=== PATIENT | male | born 1995 | race Caucasian/White ===

== ENCOUNTER 2019-02-22 00:49 | Emergency (ER) | payer OTHER ==
[~2019-02-22] VITALS: Ht 188 cm; Wt 83.9 kg
[~2019-02-22 00:49] MED LIST: BUSPIRONE HCL15 MG PO; REMERON30 MG PO
[2019-02-22] MEDS ORDERED: SERTRALINE HCL50 MG PO (01:11)
[2019-02-22] MEDS ORDERED: TRAZODONE HCL100 MG PO (01:11)
[2019-02-22] MEDS ORDERED: MELOXICAM7.5 MG PO (01:12)
[2019-02-22] MEDS ORDERED: LOTRIMIN AF12 GM TOP (01:12)
[2019-02-22] MEDS ORDERED: MELATIN3 MG PO (01:13)
== END 2019-02-22 02:20 | disposition home or self-care (01) ==
LOC: ED 00:49
DX: S06.0X9A Concussion with loss of consciousness of unspecified duration, initial encounter (principal); S93.402A Sprain of unspecified ligament of left ankle, initial encounter; Z87.891 Personal history of nicotine dependence; Z79.899 Other long term (current) drug therapy; W18.30XA Fall on same level, unspecified, initial encounter
CPT/HCPCS: 70450; 73610; 99284-25